=== PATIENT | female | born 1995 | race African-American/Black ===

== ENCOUNTER 2016-11-25 22:59 | Emergency (ER) | payer SELFPAY ==
[~2016-11-25] VITALS: Ht 165.1 cm; Wt 91.0 kg
[2016-11-25 23:03] VITALS: BP 107/57; PULSE 94; RESP 14; TEMP 100.5; O2SAT 97
--- NOTE | 2016-11-25 23:33 | PD ---
HPI Chief Complaint: Cold / Flu Symptoms Time Seen by Provider: 23:32 Travel History International Travel<30 days: No Contact w/Intl Traveler<30days: No Traveled to known affect area: No History of Present Illness HPI 21-year-old female came to the emergency room with history of headache, sore throat, body ache and cough that started since the afternoon. Patient says that she was coming home from school when she started getting the headache followed by all the other symptoms. She says that quite a few students at her class are sick with similar symptoms. She did not get her flu shot this year. Patient had a temperature of 100.5 in triage. She has been coughing a little. She has history of asthma and used her inhaler today. [facility] Past Medical History Narrative Medical List of her past medical history is reviewed from the nursing note. Respiratory: Yes (ASTHMA) ?: Not LMP: NOW Social History Tobacco Use: No Allergies-Medications (Allergen,Severity, Reaction): Coded Allergies: Cultivated Oat Pollen (Verified Allergy, Mild, Sneezing, 11/26/16) Comments List of her allergies reviewed from the nursing note. Reported Meds & Prescriptions Reported Meds & Active Scripts Active Tamiflu (Oseltamivir Phosphate) 75 Mg Cap 75 Mg PO BID 5 Days Narrative Medication List of her home medications reviewed from the nursing note. Review of Systems Except as stated in HPI: all other systems reviewed are Neg Physical Exam Narrative GENERAL: Awake, alert, moderate distress SKIN: Warm and dry. HEAD: Atraumatic. Normocephalic. EYES: Pupils equal and round. No scleral icterus. No injection or drainage. ENT: No nasal bleeding or discharge. Mucous membranes pink and moist. NECK: Trachea midline. No JVD. CARDIOVASCULAR: Regular rate and rhythm. No murmur appreciated. RESPIRATORY: No accessory muscle use. Mild end expiratory wheeze. GASTROINTESTINAL: Abdomen soft, non-tender, nondistended. Hepatic and splenic margins not palpable. MUSCULOSKELETAL: No obvious deformities. No clubbing. No cyanosis. No edema. NEUROLOGICAL: Awake and alert. No obvious cranial nerve deficits. Motor grossly within normal limits. Normal speech. PSYCHIATRIC: Appropriate mood and affect; insight and judgment normal. Data Data Last Documented VS Vital Signs Date Time Temp Pulse Resp B/P Pulse Ox O2 Delivery O2 Flow Rate FiO2 11/26/16 01:34 95 20 112/53 95 11/26/16 00:14 Room Air 11/25/16 23:03 100.5 Orders Influenzae A/B Antigen (11/25/16 23:36) Oximetry (11/25/16 23:36) Sodium Chloride 0.9% Flush (Ns Flush) (11/25/16 23:45) Ibuprofen (Motrin) (11/25/16 23:45) Albuterol Neb (Albuterol Neb) (11/25/16 23:45) Oseltamivir (Tamiflu) (11/26/16 01:15) [facility] Medical Decision Making Medical Screen Exam Complete: Yes Emergency Medical Condition: Yes Medical Record Reviewed: Yes Differential Diagnosis Viral illness, influenza Narrative Course 1:10 AM influenza A was positive. Patient was given initially Motrin for her fever and body aches. I have given her dose of Tamiflu and prescription to go home with. I discussed with the patient her test result and the fact that she should use her albuterol inhaler during her symptoms continue. Her friend is here with her and will take her home. Patient requested school excuse note which will be given. Procedures EKG Prior to Arrival: No Diagnosis Primary Impression: Influenza Additional Impression: Asthma exacerbation Referrals: Primary Care Physician 2 days Departure Forms: School Release, Return to School Date: Nov 30, 2016 Tests/Procedures Additional Instructions: Please use the albuterol inhaler every 4-6 hours until symptoms are gone. Take the medication as per the prescription direction. Follow-up with your primary care in couple days. Return to the ER if the condition worsens or any other new concerns. Med/Other Pt SpecificInfo: Prescription(s) given Scripts Oseltamivir (Tamiflu)75 Mg Cap75 Mg PO BID 5 Days Ref 0 Prov:Hazle Siddiqi MD 11/26/16 Disposition: 01 DISCHARGE HOME Condition: Stable Hazel Siddiqi MD Nov 25, 2016 23:33
[2016-11-25] MEDS ORDERED: RESP: ALBUTEROL 2.5 MG/3 ML NEB (SCH) NEB ONE (23:45)
[2016-11-25] MEDS ORDERED: SODIUM CHLORIDE 0.9% FLUSH 5 ML FLUSH IVF PRN (23:45)
[2016-11-25] MEDS ORDERED: IBUPROFEN 600 MG TAB PO ONE (23:45)
[2016-11-26] MEDS ORDERED: OSEL75 PO (01:13)
[2016-11-26] MEDS ORDERED: OSELTAMIVIR PHOSPHATE 75 MG CAP PO ONE (01:15)
[2016-11-26 01:34] VITALS: BP 112/53
== END 2016-11-26 01:56 | disposition home or self-care (01) ==
LOC: NEPC 22:59
DX: J09.X2 Influenza due to identified novel influenza A virus with other respiratory manifestations (principal); J45.901 Unspecified asthma with (acute) exacerbation
CPT/HCPCS: 87804; 94664; 99284; J7613